=== PATIENT | female | born 2000 | race Caucasian/White ===

== ENCOUNTER 2020-06-19 12:51 | Outpatient (CLI) | payer OTHER ==
--- NOTE | 2020-06-19 14:25 | RAD ---
ONE VIEW ABDOMEN: HISTORY: Irritable bowel symptoms with constipation. FINDINGS: There are multiple Sitz markers noted in the stomach. The number of sitz markers cannot be counted on this day 1 exam. IMPRESSION: Multiple Sitz markers in the stomach. Transcribed Date/Time: 06/19/2020 2:42 PM
== END 2020-06-19 12:52 | disposition home or self-care (01) ==
LOC: BICRAD 12:51
DX: K58.1 Irritable bowel syndrome with constipation (principal)
CPT/HCPCS: 74018

== ENCOUNTER 2020-06-24 12:05 | Outpatient (CLI) | payer OTHER ==
--- NOTE | 2020-06-24 12:28 | RAD ---
XR Abdomen 1 View/KUB History: Constipation Comparison: Radiograph June 19, 2020 FINDINGS: There are total of 3 markers remaining within the abdomen, one projecting of the descending colon, one projecting of the ascending colon, and the third projecting over the rectum. Impression: Total of 3 markers remaining in the abdomen, one projecting over the ascending colon, one over the descending colon, and one projecting over junction the rectum.
== END 2020-06-24 12:06 | disposition home or self-care (01) ==
LOC: BICRAD 12:05
PROVIDERS: ATTEND Internal Medicine Gastroenterology
DX: K58.1 Irritable bowel syndrome with constipation (principal)
CPT/HCPCS: 74018